=== PATIENT | female | born 1970 | race Caucasian/White ===

== ENCOUNTER → 2024-01-08 07:27 | Outpatient (REF) | payer OTHER, SELFPAY | LOC: HWEVLT 07:27 | PROVIDERS: ATTENDING PHYSICIAN Radiology Vascular & Interventional Radiology | DX: I83.893 Varicose veins of bilateral lower extremities with other complications (principal) | CPT/HCPCS: 93970 ==

== ENCOUNTER 2024-11-22 16:04 | Emergency (ER) | payer OTHER, SELFPAY ==
[2024-11-22 16:20] VITALS: BP 132/88
--- NOTE | 2024-11-22 16:21 | ED.GENMED ---
ED Provider Triage
<Jerzy Ryder Jr., PA-C - Last Filed: 11/22/24 16:43>
-
Patient seen by provider in Triage?: Seen in Triage
Attestation: A medical screening examination has been initiated by a qualified medical provider. Based on the assessment performed at this time, it has been determined that an emergent medical condition may exist and the patient has been informed
that further medical evaluation and possible additional diagnostic testing may be needed.
HPI: 54-year-old female presenting with concerns of central neck discomfort made worse with swallowing. Ongoing for a few days has noticed some blood-tinged sputum. Does have some ongoing nasal congestion. On examination posterior pharynx is
generally normal-appearing with uvula midline no significant swelling but there is postnasal drip. Patient is pointing to the mid neck as main area of discomfort. Considering the soft tissue and x-ray was ordered.
GENERAL: Alert , in no apparent distress
EYE: No visual abnormalities.
NECK: Trachea midline
ENT: No visible abnormalities.
LUNGS: No acute respiratory distress
NEUROLOGICAL: Alert and oriented
SKIN: Skin intact. No visible changes.
MUSCULOSKELETAL: Moving extremities normally
PSYCH: Normal and appropriate interaction.
This is a medical evaluation conducted in person to initiate diagnostic evaluation and provide initial therapeutics. Please see further documentation by the treating clinician.
History of Present Illness
<Jerzy Ryder Jr., PA-C - Last Filed: 11/22/24 16:43>
General
Chief Complaint: Abdominal Symptoms
Time Seen by Provider: 11/22/24 17:27
<JADA White - Last Filed: 11/22/24 23:02>
General
Source: patient
Exam Limitations: none
Nursing documentation reviewed up to this point in time: agreed with
History of Present Illness
History of Present Illness:
Patient is a 54 year-old female who presents to the ER complaining of spitting up of blood. During my exam patient is asking if she is ready to be discharged she reports she 'feels fine and wants to go home.' I did discuss with patient that I was
trying to get further history.
She reports for the past 3 days when she lays down she feels the need to spit and develops phlegm in the back of her throat. She reports when she spits there is blood. She reports her sputum is blood-tinged and she has mild throat discomfort.
She reports this only occurs when she lays down at night. She has not been sick or ill. She denies any cough. She is not coughing up blood. Denies any cold/URI symptoms. She was sent into the ER by her pcp who saw her in the
office. Call and note that patient was tachycardic and dizzy in the office and she was sending patient over to rule out GI bleed.
She does not have a history of reflux. No abdominal pain. denies dark/black stools.
She is not a smoker. She is not on blood thinners.
Past History
<Jerzy Ryder Jr., PA-C - Last Filed: 11/22/24 16:43>
Past History
ED Past Medical History: None
ED Past Surgical History: None
Patient has exhibited threatening behavior?: No
Social History
Tobacco: Non-smoker
Alcohol: None
Living: with family
Review of Systems
<JADA White - Last Filed: 11/22/24 23:02>
Review of Systems
Allergies reviewed?: Yes
All Other Systems: ROS reviewed and negative except as documented in HPI and ROS
Constitutional: Reports no symptoms; Denies fever, fatigue or chills
EENT: Reports sore throat and other (spitting up blood )
Respiratory: Reports no symptoms; Denies cough or trouble breathing
Cardiac: Reports no symptoms
ABD/GI: Reports no symptoms
: Reports no symptoms
Musculoskeletal: Reports no symptoms
Skin: Reports no symptoms
Neurological: Reports no symptoms
Psychiatric: Reports no symptoms
Phy Exam
<JADA White - Last Filed: 11/22/24 23:02>
General Physical Exam
General Presentation: no apparent distress
General age: appears stated age
General Skin: warm and dry
General Habitus: normal
General Mental: alert
General Hydration: appears well hydrated
ENT Exam
ENT Exam: pharynx normal and neck supple
Cardiovascular Exam
Cardiovascular Exam: regular rate/rhythm, no murmur and normal peripheral pulses
Pulmonary Exam
Pulmonary Exam: lungs clear and no respiratory distress
Neurological Exam
Neurological Exam: alert and oriented x3
Musculoskeletal Exam
Musculoskeletal Exam: full ROM
Skin Exam
Skin Exam: normal color and warm/dry
Psychiatric Exam
Psychiatric Exam: normal mood/affect
Course
<Jerzy Ryder Jr., PA-C - Last Filed: 11/22/24 16:43>
Orders/Labs/Results
Orders:
Orders
11/22/24 16:22
Neck Soft Tissue [CR Soft Tissue Neck ] Urgent
Comment:
Reason For Exam: neck pain
11/22/24 18:25
IV Insert/Care/Rem.- Treatment PRN
11/22/24 18:28
Vital Signs- Treatment ONCE
Frequency: Once
11/22/24 19:04
Complete Blood Count/With Diff Urgent
Comprehensive Metabolic Panel Urgent
11/22/24 20:26
Vital Signs- Treatment ONCE
Frequency: Once
Abnormal Lab Results
11/22/24
19:04
MCH 31.8 H pg
(27.0-31.0)
MPV 10.6 H fL
(7.4-10.4)
Absolute Monos (auto) 0.7 H 10^3/uL
(0.1-0.6)
Monocytes % 9.9 H %
(1.7-9.3)
11/22/24 19:04
11/22/24 19:04
Vital Signs
Initial and Last Documented VS:
Initial Vital Signs
Temp Pulse Resp BP Pulse Ox
98.0 F 99 16 132/88 98
11/22/24 16:20 11/22/24 16:20 11/22/24 16:20 11/22/24 16:20 11/22/24 16:20
Last Documented Vital Signs
Temp Pulse Resp BP Pulse Ox
98.0 F 117 18 141/93 97
11/22/24 16:20 11/22/24 21:44 11/22/24 21:44 11/22/24 21:44 11/22/24 21:44
<JADA White - Last Filed: 11/22/24 23:02>
Orders/Labs/Results
Orders:
Orders
11/22/24 16:22
Neck Soft Tissue [CR Soft Tissue Neck ] Urgent
Comment:
Reason For Exam: neck pain
11/22/24 18:25
IV Insert/Care/Rem.- Treatment PRN
11/22/24 18:28
Vital Signs- Treatment ONCE
Frequency: Once
11/22/24 19:04
Complete Blood Count/With Diff Urgent
Comprehensive Metabolic Panel Urgent
11/22/24 20:26
Vital Signs- Treatment ONCE
Frequency: Once
Abnormal Lab Results
11/22/24
19:04
MCH 31.8 H pg
(27.0-31.0)
MPV 10.6 H fL
(7.4-10.4)
Absolute Monos (auto) 0.7 H 10^3/uL
(0.1-0.6)
Monocytes % 9.9 H %
(1.7-9.3)
11/22/24 19:04
11/22/24 19:04
Vital Signs
Initial and Last Documented VS:
Initial Vital Signs
Temp Pulse Resp BP Pulse Ox
98.0 F 99 16 132/88 98
11/22/24 16:20 11/22/24 16:20 11/22/24 16:20 11/22/24 16:20 11/22/24 16:20
Last Documented Vital Signs
Temp Pulse Resp BP Pulse Ox
98.0 F 117 18 141/93 97
11/22/24 16:20 11/22/24 21:44 11/22/24 21:44 11/22/24 21:44 11/22/24 21:44
Measurement And Sensing Technician consulted with Physician
Measurement And Sensing Technician consulted with physician?: Yes
Name of Physician Consulted: Dr Jackson
<JADA White - Last Filed: 11/22/24 23:02>
MDM/Problems Addressed
MDM/Problems Addressed:
Patient is a 54-year-old female who is seen by her family doctor. Patient recently as documented describes feeling a buildup of phlegm in her throat and spitting up blood. She is not coughing up blood there is no story consistent with hemoptysis.
She has no complaints abdominal pain and has no prior history of reflux, ulcer/gastritis. She presents awake alert no acute distress.
Pharynx is clear lungs are clear vital signs stable abdomen soft nontender blood work unremarkable including normal hemoglobin hematocrit platelets and chemistries. Patient has no complaints here in the ER. She is very well-appearing and nontoxic
abdomen soft nontender.
Story is not concerning for GI bleed .
Case reviewed ED physician .will have patient follow-up with ENT. She reports this feels more like a postnasal drip that occurs at nighttime while sleeping for the past 3 days. Patient has not been tachycardic on my exam though last set of vital
signs reads HR of 117. She was very anxious and wanted to leave prior to the work up being done though which is likely cause of elevated HR. she however was cooperative and agreeable with recommended blood work and ED workup.
<JADA White - Last Filed: 11/22/24 23:02>
*Critical Care Note
Total Time (30-74mins, 75-104mins- exclusive of procedures): Not Applicable
ED Attending Note
<Jerzy Ryder Jr., PA-C - Last Filed: 11/22/24 16:43>
-
Portions of this chart may have been created with voice recognition software.� Occasional wrong word or��sound alike� substitutions may have occurred due to the inherent limitations of voice recognition software.
Discharge Plan
Departure
Patient Disposition: Home (Routine Discharge)
Date of Disposition: 11/22/24
Time of Disposition: 20:26
Patient with high blood pressure during this ER visit?: Yes
Condition: Fair
Covid-19: Not Applicable
Discharge Problem:
Dysphagia
Instructions: Dysphagia, BLOOD PRESSURE
Prescriptions:
No Action
bupropion HCl 300 MG tablet extended release 24 hr
300 mg PO DAILY
lamotrigine [Lamictal XR] 300 MG tablet extended release 24hr
300 mg PO DAILY
amoxicillin-pot clavulanate 875-125 mg tablet
1 tab PO BID 7 Days Qty: 14 0RF
Referrals:
Saima Leblanc DO [Family Provider] -
Vincent Santos MD [Active] -
Activity Restrictions/Additional Instructions:
As discussed your labs were stable here in the ER. You had no episodes here in the ER. Please follow-up with learning support teacher in the next several days call tomorrow to make an appointment return if any worsening of symptoms.
Interventions
Interventions:
*Risk Screen - Suicide Last Done: 11/22/24 16:20
*General Assessment Last Done: 11/22/24 21:49
*Neglect/Abuse Screening Last Done: 11/22/24 16:20
*Nursing Disposition Last Done: 11/22/24 21:49
Discharge Date and Time
Discharge Date/Time: 11/22/24 21:49
Print Language: SWISS
[2024-11-22 19:22] LABS: % Basophils 0.4 % (0-2); % Immature Granulocytes 0.3 % (0-0.5); % Lymphocytes 30.4 % (20.5-51.1); % Monocytes 9.9 % (1.7-9.3); Absolute Eosinophils 0.2 10^3/uL (0-0.7); Absolute Lymphocytes 2.1 10^3/uL (1.2-3.4); Absolute Monocytes 0.7 10^3/uL (0.1-0.6); Absolute Neutrophils 3.9 10^3/uL (1.4-6.5); Hematocrit 42.2 % (37.0-47.0); Hemoglobin 14.1 g/dL (12.0-16.0); Mean Corp Hgb Conc. 33.4 g/dL (33.0-37.0); Mean Corpuscular Hgb 31.8 pg (27.0-31.0); Mean Corpuscular Volume 95.3 fL (81.0-99.0); Mean Platelet Volume 10.6 fL (7.4-10.4); Nucleated Red Blood Cells % 0 %; Platelet Count 239 10^3/uL (130-400); Red Blood Cell Count 4.43 10^6/uL (4.20-5.40); Red Cell Dist. Width 13.5 % (11.5-14.5); White Blood Cell Count 6.9 10^3/uL (4.8-10.8)
[2024-11-22 19:30] LABS: ALT (SGPT) 24 U/L (0-35); AST (SGOT) 29 U/L (14-36); Albumin 4.7 g/dl (3.5-5.0); Alkaline Phosphatase 71 U/L (38-126); Blood Urea Nitrogen 10 mg/dl (7-17); Calcium 9.5 mg/dl (8.4-10.2); Carbon Dioxide 27 mmol/L (22-30); Glucose 96 mg/dl (70-99); Total Bilirubin 0.7 mg/dl (0.2-1.3); Total Protein 7.4 g/dl (6.3-8.2); eGFR > 60.00
[2024-11-22 19:39] LABS: Chloride 99 mmol/L (98-107); Potassium 4.2 mmol/L (3.5-5.1); Sodium 135 mmol/L (135-145)
[2024-11-22 21:44] VITALS: BP 141/93
== END 2024-11-22 21:49 | disposition home or self-care (01) ==
LOC: EMR 16:04
PROVIDERS: Nurse Practitioner; EMERGENCY PHYSICIAN Emergency Medicine; FAMILY PHYSICIAN Family Medicine
DX: R13.10 Dysphagia, unspecified (principal)
CPT/HCPCS: 99283; 70360; 80053; 85025

== ENCOUNTER → 2025-09-19 10:10 | Outpatient (REF) | payer OTHER, SELFPAY | LOC: HWRAD 10:10 | PROVIDERS: ATTENDING PHYSICIAN Obstetrics & Gynecology; FAMILY PHYSICIAN Family Medicine | DX: N92.4 Excessive bleeding in the premenopausal period (principal) | CPT/HCPCS: 76830; 76856 ==